=== PATIENT | male | born 1975 | race Two or more races ===

== ENCOUNTER 2020-07-14 13:37 | Inpatient (IN) | payer SELFPAY ==
[~2020-07-14] VITALS: Ht 167.6 cm; Wt 97.2 kg
[2020-07-14] MEDS ORDERED: SODIUM CHLORIDE 0.9% 1,000 ML IV ONE (14:00)
[2020-07-14] MEDS ORDERED: DexAMETHasone SOD PHOS 10MG/1ML VIAL INJ IV ONE (14:45)
[2020-07-14] MEDS ORDERED: DOXYCYCLINE 100MG/250ML 250 ML IV ONE (14:45)
[2020-07-14 14:55] LABS: Albumin 3.6 g/dL (3.4-5.0); Calcium 8.2 mg/dL (8.5-10.1); Potassium 4.1 mmol/L (3.5-5.1)
[2020-07-14 14:58] LABS: BUN/Creatinine Ratio 14.5; Bilirubin, Total 0.8 mg/dL (0.2-1.0)
[2020-07-14] MEDS ORDERED: MORPHINE SULF INJ 2 MG/ML SYRINGE 1ML IV PRN ×2 (15:45→20:45)
[2020-07-14] MEDS ORDERED: NITROGLYCERIN 0.4 MG SL TAB SL PRN ×2 (15:45→20:45)
[2020-07-14 16:59] LABS: Basophils # (auto) 0 10 ^3/uL (0-0.2); Basophils % (auto) 0.3 % (0.0-2.0); Eosinophils # (auto) 0 10 ^3/uL (0-0.8); Hematocrit 46.3 % (41.0-53.0); Lymphocytes # (auto) 0.7 10 ^3/uL (0.4-5.4); Lymphocytes % (auto) 7.6 % (10.0-50.0); Mean Corpuscular Hemoglobin 27.4 pg (28.0-32.0); Mean Corpuscular Hgb Conc. 32.4 g/dL (32.0-36.0); Mean Corpuscular Volume 84.6 fL (80.0-100.0); Monocytes # (auto) 0.6 10 ^3/uL (0-1.3); Monocytes % (auto) 7.1 % (0.0-12.0); Neutrophils # (auto) 7.7 10 ^3/uL (1.6-8.6); Nucleated Red Blood Cells % 0.1 %; Platelet Count (auto) 174 10^3/uL (140-450); Red Blood Cells 5.47 10^6/uL (4.5-5.90); Red Cell Distribution Width 14.8 % (11.8-14.3); White Blood Cell 9.1 10^3/uL (4.4-10.8)
[2020-07-14] MEDS ORDERED: SODIUM CHLORIDE 0.9% 1,000 ML IV SCH (20:36)
[2020-07-14] MEDS ORDERED: ACETAMINOPHEN 500 MG TAB PO PRN (20:45)
[2020-07-14] MEDS ORDERED: ALUM & MAG HYDROX-SIMETH LIQ(MAALOX) 30 ML PO PRN (20:45)
[2020-07-14] MEDS ORDERED: DOCUSATE SOD 100 MG CAP PO PRN (20:45)
[2020-07-14] MEDS ORDERED: LORazepam 0.5 MG TAB PO PRN (20:45)
[2020-07-14] MEDS: DOXYCYCLINE 100MG/250ML 250 ML IV SCH (21:27)
[2020-07-14] MEDS: ALBUTEROL SULF HFA 90MCG INH 200DOSE IN SCH (22:15)
[2020-07-14] MEDS: BUDESONIDE (INHALATION) 180 MCG IH IN SCH (22:15)
--- NOTE | 2020-07-14 22:15 | NUR ---
Respiratory note: ASSESSED PT FOR MDI TX. PT IS CURRENTLY ON 3 L/M: HR 88, RR 24, SPO2 95%. PT STATES THAT HIS BREATHING IS FINE AND THAT HE IS NO LONGER SOB. MDI WITHHELD UNTIL COVID RESULTS OR IF PT BECOMES SOB. WILL CONTINUE TO MONITOR.
[2020-07-14 22:30] LABS: Albumin 3.2 g/dL (3.4-5.0); Calcium 7.9 mg/dL (8.5-10.1); Magnesium 2.7 mg/dL (1.6-2.6); Potassium 4.3 mmol/L (3.5-5.1)
[2020-07-14 22:38] LABS: BUN/Creatinine Ratio 18.3; Bilirubin, Total 0.6 mg/dL (0.2-1.0); CRP High Sensitivity 4.09 mg/dL (< 0.3); Total Protein 7.4 g/dL (6.4-8.2)
--- NOTE | 2020-07-14 23:56 | NUR ---
Telemetry admit from ER CHARMAINERENNY admitted to Telemetry unit after NO SBAR received. Patient oriented to FIDELINA FLOREZ RN primary RN, unit, room, bed, and unit policies regarding patient care and visiting hours. Patient now on continuous telemetry monitoring, tele box # 11and telemetry reading on arrival to unit is Tachycardia 101bpm. Patient placed on bedside oxygen, weighed by bedscale and encouraged to call if they need something. All questions and concerns addressed, patient verbalized understanding.
[2020-07-15] VITALS (7 sets, daily range): BP systolic 115–133; BP diastolic 74–87
[2020-07-15] MEDS ORDERED: INFLUENZA QUAD 2019-2020 0.5ml SYRG IM ONE (01:45)
[2020-07-15] MEDS ORDERED: PNEUMOCOCCAL VACC POLYS 25 MCG/0.5 ML VIAL IM ONE (01:45)
[2020-07-15 02:09] LABS: Urine Bacteria FEW /hpf (None Seen); Urine Blood Negative /uL (Negative); Urine Hyaline Cast MANY /lpf (0 - 2); Urine Mucus FEW (None Seen); Urine Specific Gravity 1.025 (1.001-1.035); Urine WBC 3 /hpf (0 - 3)
[2020-07-15 02:15] LABS: Amphetamine Screen, Urine NEGATIVE (NEGATIVE); Barbiturate Scree,Urine NEGATIVE (NEGATIVE); Benzodiazephine Screen, Urine NEGATIVE (NEGATIVE); Cannabinoid Screen, Urine NEGATIVE (NEGATIVE); Cocaine Screen, Urine NEGATIVE (NEGATIVE); Opiate Scree,Urine NEGATIVE (NEGATIVE); Phencyclidine Screen, Urine NEGATIVE (NEGATIVE)
[2020-07-15] MEDS: FUROSEMIDE 20 MG/2 ML VIAL IV SCH ×2 (05:40→18:12)
--- NOTE | 2020-07-15 06:50 | NUR ---
patient rounds patient resting in bed. denies sob distress or pain. call light within reach and bed in low position.
[2020-07-15 06:57] LABS: Cholesterol 105 mg/dL (< 200)
[2020-07-15 06:58] LABS: Albumin 3.1 g/dL (3.4-5.0); Calcium 7.9 mg/dL (8.5-10.1); Potassium 4.3 mmol/L (3.5-5.1)
[2020-07-15 06:59] LABS: Basophils # (auto) 0 10 ^3/uL (0-0.2); Basophils % (auto) 0.3 % (0.0-2.0); Eosinophils # (auto) 0 10 ^3/uL (0-0.8); Hematocrit 41.9 % (41.0-53.0); Lymphocytes # (auto) 0.6 10 ^3/uL (0.4-5.4); Lymphocytes % (auto) 6.7 % (10.0-50.0); Mean Corpuscular Hgb Conc. 33.4 g/dL (32.0-36.0); Mean Corpuscular Volume 83.9 fL (80.0-100.0); Monocytes # (auto) 0.5 10 ^3/uL (0-1.3); Monocytes % (auto) 5.6 % (0.0-12.0); Neutrophils # (auto) 8.2 10 ^3/uL (1.6-8.6); Neutrophils % (auto) 87.4 % (37.0-80.0); Nucleated Red Blood Cells % 0.1 %; Platelet Count (auto) 160 10^3/uL (140-450); Red Blood Cells 4.99 10^6/uL (4.5-5.90); Red Cell Distribution Width 14.4 % (11.8-14.3); White Blood Cell 9.4 10^3/uL (4.4-10.8)
--- NOTE | 2020-07-15 07:01 | NUR ---
report given to dayshift rn. patient denies sob distress or pain.
[2020-07-15 07:02] LABS: HDL Cholesterol 24 mg/dL (40-59); LDL Cholesterol 74 mg/dL (< 100); Triglycerides 62 mg/dL (< 150)
[2020-07-15 07:03] LABS: BUN/Creatinine Ratio 20.9; Bilirubin, Total 0.6 mg/dL (0.2-1.0); Total Protein 6.6 g/dL (6.4-8.2)
[2020-07-15] MEDS: ALBUTEROL SULF HFA 90MCG INH 200DOSE IN SCH ×4 (07:07→22:27)
--- NOTE | 2020-07-15 07:07 | NUR ---
RT NOTE: TX HELD/MEDS NOT ORDERED. WAITING FOR PENDING COVID RESULTS. NO SIGNS OF RESPIRATORY DISTRESS NOTED AT THIS TIME. ON 3LNC SPO2 93 HR 87 RR 1820. LUNG SOUNDS CLEAR/DIMINISHED T/O. WILL CONTINUE TO MONITOR.
[2020-07-15] MEDS: BUDESONIDE (INHALATION) 180 MCG IH IN SCH ×2 (07:08→22:27)
--- NOTE | 2020-07-15 11:54 | NUR ---
Est energy needs [id number] kcal (18-20 kcal/kg BW 97.5kg) Est protein needs 65-84g (1-1.3g/kg IBW 64.5kg) Will reassess prn. Addendum: 07/15/20 at [address] Amended: Links added.
[2020-07-15] MEDS: DOXYCYCLINE 100MG/250ML 250 ML IV SCH ×2 (12:24→21:01)
[2020-07-15] MEDS: DexAMETHasone SOD PHOS 10MG/1ML VIAL INJ IV SCH (12:25)
[2020-07-15] MEDS: ASCORBIC ACID 1,000 MG TAB PO SCH (12:25)
[2020-07-15] MEDS: CHOLECALCIFEROL (VITD3) 2,000 UNIT CAP PO SCH (12:25)
[2020-07-15] MEDS: ZINC SULFATE 220mg CAP or TAB PO SCH (12:25)
[2020-07-15] MEDS: ENOXAPARIN SOD 40 MG/0.4 ML SYRINGE SC SCH (12:25)
--- NOTE | 2020-07-15 14:26 | NUR ---
RT NOTE: TX STILL HELD PENDING COVID RESULTS. NO DISTRESS NOTED. ON 3LNC SPO2 95 HR 87 RR 20. WILL CONTINUE TO MONITOR.
--- NOTE | 2020-07-15 19:30 | NUR ---
Opening Shift Note Assumed care of patient, awake and alert. No S/S of distress/SOB or pain. Instructed on POC and to callfor assist PRN, will continue to monitor for changes Q1hr and PRN.
[2020-07-16] MEDS: HYDROcodone-ACET 5/325MG TAB PO PRN ×2 (02:47→09:00)
[2020-07-16 05:00] VITALS: BP 119/76
[2020-07-16] MEDS: FUROSEMIDE 20 MG/2 ML VIAL IV SCH ×2 (05:37→19:28)
[2020-07-16 05:59] LABS: Basophils # (auto) 0 10 ^3/uL (0-0.2); Basophils % (auto) 0.1 % (0.0-2.0); Eosinophils # (auto) 0 10 ^3/uL (0-0.8); Hematocrit 40.9 % (41.0-53.0); Hemoglobin 13.7 g/dL (13.5-17.5); Lymphocytes # (auto) 0.7 10 ^3/uL (0.4-5.4); Lymphocytes % (auto) 5.1 % (10.0-50.0); Mean Corpuscular Hemoglobin 27.9 pg (28.0-32.0); Mean Corpuscular Hgb Conc. 33.5 g/dL (32.0-36.0); Mean Corpuscular Volume 83.3 fL (80.0-100.0); Monocytes # (auto) 0.7 10 ^3/uL (0-1.3); Monocytes % (auto) 5.3 % (0.0-12.0); Neutrophils # (auto) 11.9 10 ^3/uL (1.6-8.6); Neutrophils % (auto) 89.5 % (37.0-80.0); Platelet Count (auto) 194 10^3/uL (140-450); Red Blood Cells 4.91 10^6/uL (4.5-5.90); Red Cell Distribution Width 14.4 % (11.8-14.3); White Blood Cell 13.3 10^3/uL (4.4-10.8)
[2020-07-16 06:17] LABS: Calcium 7.8 mg/dL (8.5-10.1)
[2020-07-16 06:20] LABS: BUN/Creatinine Ratio 28.1
[2020-07-16] MEDS: ALBUTEROL SULF HFA 90MCG INH 200DOSE IN SCH ×3 (06:44→22:42)
[2020-07-16] MEDS: BUDESONIDE (INHALATION) 180 MCG IH IN SCH ×2 (06:44→22:42)
[2020-07-16 08:00] VITALS: BP 110/78
[2020-07-16] MEDS: ZINC SULFATE 220mg CAP or TAB PO SCH (11:40)
[2020-07-16] MEDS: ASCORBIC ACID 1,000 MG TAB PO SCH (11:40)
[2020-07-16] MEDS: DOXYCYCLINE 100MG/250ML 250 ML IV SCH ×2 (11:40→20:49)
[2020-07-16] MEDS: DexAMETHasone SOD PHOS 10MG/1ML VIAL INJ IV SCH (11:40)
[2020-07-16] MEDS: CHOLECALCIFEROL (VITD3) 2,000 UNIT CAP PO SCH (11:42)
[2020-07-16] MEDS: ENOXAPARIN SOD 40 MG/0.4 ML SYRINGE SC SCH (11:43)
[2020-07-16] MEDS: MORPHINE SULF INJ 2 MG/ML SYRINGE 1ML IV PRN (12:30)
[2020-07-16] MEDS: ONDANSETRON HCL 4 MG/2 ML VIAL IV PRN (12:30)
[2020-07-16 13:13] VITALS: BP 121/82
[2020-07-16 17:00] VITALS: BP 126/75
--- NOTE | 2020-07-16 19:18 | NUR ---
Opening Shift Note Assumed care of patient, awake and alert. No S/S of distress/SOB or pain. Instructed on POC and to call for assist PRN, will continue to monitor for changes Q1hr and PRN.
[2020-07-16 22:00] VITALS: BP 101/67
[2020-07-17] MEDS: HYDROcodone-ACET 5/325MG TAB PO PRN (02:31)
[2020-07-17 05:07] VITALS: BP 117/85
[2020-07-17 06:05] LABS: Basophils # (auto) 0 10 ^3/uL (0-0.2); Basophils % (auto) 0.1 % (0.0-2.0); Eosinophils # (auto) 0 10 ^3/uL (0-0.8); Hematocrit 41.3 % (41.0-53.0); Hemoglobin 13.6 g/dL (13.5-17.5); Lymphocytes # (auto) 0.6 10 ^3/uL (0.4-5.4); Lymphocytes % (auto) 6.6 % (10.0-50.0); Mean Corpuscular Hemoglobin 27.6 pg (28.0-32.0); Mean Corpuscular Volume 83.5 fL (80.0-100.0); Monocytes # (auto) 0.7 10 ^3/uL (0-1.3); Monocytes % (auto) 7.8 % (0.0-12.0); Neutrophils # (auto) 7.9 10 ^3/uL (1.6-8.6); Neutrophils % (auto) 85.5 % (37.0-80.0); Platelet Count (auto) 204 10^3/uL (140-450); Red Blood Cells 4.95 10^6/uL (4.5-5.90); Red Cell Distribution Width 14.2 % (11.8-14.3); White Blood Cell 9.2 10^3/uL (4.4-10.8)
[2020-07-17 06:27] LABS: BUN/Creatinine Ratio 24.4; Calcium 7.9 mg/dL (8.5-10.1)
[2020-07-17] MEDS: ALBUTEROL SULF HFA 90MCG INH 200DOSE IN SCH ×3 (06:49→21:37)
[2020-07-17] MEDS: BUDESONIDE (INHALATION) 180 MCG IH IN SCH ×2 (06:49→21:37)
[2020-07-17] MEDS: FUROSEMIDE 20 MG/2 ML VIAL IV SCH ×2 (06:56→17:15)
--- NOTE | 2020-07-17 07:30 | NUR ---
Opening Shift Note Assumed care of patient, awake and alert. Oxygen via NC 3L saturation 96 %,No S/S of distress/SOB or pain. Instructed on POC and to call for assist PRN, will continue to monitor for changes Q1hr and PRN.
[2020-07-17 09:00] VITALS: BP 129/105
[2020-07-17] MEDS: MORPHINE SULF INJ 2 MG/ML SYRINGE 1ML IV PRN ×3 (11:30→22:26)
[2020-07-17] MEDS: ONDANSETRON HCL 4 MG/2 ML VIAL IV PRN (11:30)
[2020-07-17] MEDS: DexAMETHasone SOD PHOS 10MG/1ML VIAL INJ IV SCH (11:51)
[2020-07-17] MEDS: ZINC SULFATE 220mg CAP or TAB PO SCH (11:51)
[2020-07-17] MEDS: DOXYCYCLINE 100MG/250ML 250 ML IV SCH ×2 (11:51→22:22)
[2020-07-17] MEDS: ASCORBIC ACID 1,000 MG TAB PO SCH (11:52)
[2020-07-17] MEDS: ENOXAPARIN SOD 40 MG/0.4 ML SYRINGE SC SCH (11:52)
[2020-07-17] MEDS: CHOLECALCIFEROL (VITD3) 2,000 UNIT CAP PO SCH (11:52)
[2020-07-17 13:19] VITALS: BP 131/87
--- NOTE | 2020-07-17 14:59 | NUR ---
assessment Patient is a 45 year old male who is alert and oriented. Prior to admission patient lived home with family and functioned independently. Patient informed me he is able to care for his own ADLs. Per patient he will return home to his prior living arrangements post discharge and family will transport him home. Patient is covid positive. I informed patient I will continue to monitor and follow up as appropriate. Patient has no insurance. Patient has been assessed by Pramod Donovan of [facility]. Patient may qualify for [employer] if she brings back all her paperwork. I have provided patient with resources for [facility], Dr. Padilla, and [facility] urgent care for follow up visits. I have provided patient with a prescription card from community assistance program. I informed patient he has a right to speak to a social service director regarding all care. I informed patient he has a right to participate in any and all discharge planning. Patient does not have a POA and advanced directive. I have offered patient information on POA and advanced directives. I informed the patient the advantages and benefits of having an Advanced Directive. Patient verbalized understanding and agreed to discharge plan. Addendum: 07/17/20 at 1504 by Maren DELCID Amended: Links added.
[2020-07-17 16:44] VITALS: BP 113/75
--- NOTE | 2020-07-17 19:10 | NUR ---
OPENING SHIFT NOTE: Assumed care of patient. Patient awake, alert and oriented x 4. No s/s of SOB or distress. Bed in lowest locked position with two side rails raised and call gonzalez within reach. Instructed on POC and encouraged to call for assistance, all questions and concerns addressed, patient verbalized understanding. Will continue to monitor Q1 hr and PRN.
[2020-07-17 20:01] VITALS: BP 101/78
[2020-07-17 22:00] VITALS: BP 110/68
[2020-07-18 05:00] VITALS: BP 121/87
[2020-07-18] MEDS: MORPHINE SULF INJ 2 MG/ML SYRINGE 1ML IV PRN (05:52)
[2020-07-18] MEDS: FUROSEMIDE 20 MG/2 ML VIAL IV SCH ×2 (05:52→18:14)
[2020-07-18] MEDS: BUDESONIDE (INHALATION) 180 MCG IH IN SCH ×2 (06:31→22:08)
[2020-07-18] MEDS: ALBUTEROL SULF HFA 90MCG INH 200DOSE IN SCH ×3 (06:31→22:08)
[2020-07-18 07:36] LABS: Basophils # (auto) 0 10 ^3/uL (0-0.2); Basophils % (auto) 0.2 % (0.0-2.0); Eosinophils # (auto) 0 10 ^3/uL (0-0.8); Eosinophils % (auto) 0.1 % (0.0-7.0); Hematocrit 42.1 % (41.0-53.0); Hemoglobin 14.2 g/dL (13.5-17.5); Lymphocytes # (auto) 1.1 10 ^3/uL (0.4-5.4); Lymphocytes % (auto) 9.7 % (10.0-50.0); Mean Corpuscular Hemoglobin 27.8 pg (28.0-32.0); Mean Corpuscular Hgb Conc. 33.8 g/dL (32.0-36.0); Mean Corpuscular Volume 82.2 fL (80.0-100.0); Monocytes # (auto) 1.1 10 ^3/uL (0-1.3); Monocytes % (auto) 9.2 % (0.0-12.0); Neutrophils # (auto) 9.2 10 ^3/uL (1.6-8.6); Neutrophils % (auto) 80.8 % (37.0-80.0); Platelet Count (auto) 244 10^3/uL (140-450); Red Blood Cells 5.12 10^6/uL (4.5-5.90); Red Cell Distribution Width 14.2 % (11.8-14.3); White Blood Cell 11.4 10^3/uL (4.4-10.8)
[2020-07-18 07:48] LABS: Albumin 2.9 g/dL (3.4-5.0); Calcium 7.7 mg/dL (8.5-10.1); Potassium 3.5 mmol/L (3.5-5.1)
[2020-07-18 07:51] LABS: BUN/Creatinine Ratio 20.7; Bilirubin, Total 0.6 mg/dL (0.2-1.0); Total Protein 6.8 g/dL (6.4-8.2)
[2020-07-18 09:00] VITALS: BP 107/77
--- NOTE | 2020-07-18 10:53 | NUR ---
PATIENT PROVIDED INCENTIVE SPIROMETER. INSTRUCTED ON PROPER USAGE. PATIENT RETURNED PROPER DEMONSTRATION 1250ML AT THIS TIME. INSTRUCTED TO USE 10 TIMES AN HOUR. PATIENT VERBALIZED UNDERSTANDING.
--- NOTE | 2020-07-18 11:48 | NUR ---
Nessa CASTANEDA AT BEDSIDE, Margaret EXPLAINED REMDESIVIR TO PATIENT A POSSIBILITY OF TREATMENT. UPDATED ON PATIENT STATUS AND INCENTIVE SPIROMETER USE LONG OXYGEN REQUIREMENTS.
[2020-07-18] MEDS: DexAMETHasone SOD PHOS 10MG/1ML VIAL INJ IV SCH (12:03)
[2020-07-18] MEDS: ZINC SULFATE 220mg CAP or TAB PO SCH (12:04)
[2020-07-18] MEDS: CHOLECALCIFEROL (VITD3) 2,000 UNIT CAP PO SCH (12:04)
[2020-07-18] MEDS: ENOXAPARIN SOD 40 MG/0.4 ML SYRINGE SC SCH (12:04)
[2020-07-18] MEDS: ASCORBIC ACID 1,000 MG TAB PO SCH (12:04)
[2020-07-18] MEDS: DOXYCYCLINE 100MG/250ML 250 ML IV SCH ×2 (12:04→21:08)
--- NOTE | 2020-07-18 12:35 | NUR ---
Nutrition Followup Note Wt: 98.0 kg Pt is covid positive no distress noted per nursing in isolation. pt is currently on regular diet with adequate Po of 75% x 3 per RN doc Est energy needs [id number] kcal (18-20 kcal/kg BW 97.5kg) Est protein needs 65-84g (1-1.3g/kg IBW 64.5kg) Will reassess prn. Labs: BUN 19 H, CA 7.7 L, ALB 2.9 L BM: pt with 1 BM today per RN note Skin: Bs 22 low risk, full details in critical care unit nurse note PES: Obesity aeb pt with a BMI of 34.7kg/m2 which is obese r/t caloric intake in excess of needs Comments: Will continue to monitor PO intake, skin status, pertinent labs and weight trends. Will f/u in 3-5 days. 1) refer pt to [facility] on DC. 2) Continue current plan of care
[2020-07-18 13:00] VITALS: BP 110/68
[2020-07-18 17:00] VITALS: BP 114/80
--- NOTE | 2020-07-18 19:15 | NUR ---
OPENING SHIFT NOTE: Assumed care of patient. Patient alert and oriented x 4. No s/s of SOB or distress, patient denies pain. Bed in lowest locked position with two side rails raised and call gonzalez within reach. Instructed on POC and encouraged to call for assistance, all questions and concerns addressed, patient verbalizes understanding. Will continue to monitor Q1 hr and PRN.
[2020-07-18 22:00] VITALS: BP 117/58
[2020-07-19 05:00] VITALS: BP 123/88
[2020-07-19] MEDS: FUROSEMIDE 20 MG/2 ML VIAL IV SCH ×2 (05:39→18:48)
[2020-07-19 06:33] LABS: Basophils # (auto) 0 10 ^3/uL (0-0.2); Basophils % (auto) 0.1 % (0.0-2.0); Eosinophils # (auto) 0 10 ^3/uL (0-0.8); Eosinophils % (auto) 0.1 % (0.0-7.0); Hematocrit 40.8 % (41.0-53.0); Hemoglobin 13.9 g/dL (13.5-17.5); Lymphocytes # (auto) 1.1 10 ^3/uL (0.4-5.4); Lymphocytes % (auto) 9.2 % (10.0-50.0); Mean Corpuscular Hemoglobin 28.3 pg (28.0-32.0); Mean Corpuscular Hgb Conc. 34.2 g/dL (32.0-36.0); Mean Corpuscular Volume 82.6 fL (80.0-100.0); Monocytes % (auto) 8.4 % (0.0-12.0); Neutrophils # (auto) 9.7 10 ^3/uL (1.6-8.6); Neutrophils % (auto) 82.2 % (37.0-80.0); Nucleated Red Blood Cells % 0.1 %; Platelet Count (auto) 283 10^3/uL (140-450); Red Blood Cells 4.93 10^6/uL (4.5-5.90); Red Cell Distribution Width 14.1 % (11.8-14.3); White Blood Cell 11.8 10^3/uL (4.4-10.8)
[2020-07-19 06:53] LABS: Calcium 8.1 mg/dL (8.5-10.1); Potassium 3.6 mmol/L (3.5-5.1)
[2020-07-19 06:55] LABS: BUN/Creatinine Ratio 25.3
[2020-07-19] MEDS: BUDESONIDE (INHALATION) 180 MCG IH IN SCH ×2 (07:58→21:58)
[2020-07-19] MEDS: ALBUTEROL SULF HFA 90MCG INH 200DOSE IN SCH ×3 (07:58→21:58)
[2020-07-19] MEDS: DOXYCYCLINE 100MG/250ML 250 ML IV SCH (08:35)
[2020-07-19] MEDS: ZINC SULFATE 220mg CAP or TAB PO SCH (08:35)
[2020-07-19] MEDS: ASCORBIC ACID 1,000 MG TAB PO SCH (08:35)
[2020-07-19] MEDS: DexAMETHasone SOD PHOS 10MG/1ML VIAL INJ IV SCH (08:35)
[2020-07-19] MEDS: CHOLECALCIFEROL (VITD3) 2,000 UNIT CAP PO SCH (08:36)
[2020-07-19] MEDS: ENOXAPARIN SOD 40 MG/0.4 ML SYRINGE SC SCH (08:36)
[2020-07-19 09:00] VITALS: BP 100/67
[2020-07-19 13:00] VITALS: BP 98/64
[2020-07-19 17:00] VITALS: BP 105/69
--- NOTE | 2020-07-19 19:15 | NUR ---
Opening Shift Note Assumed care of patient. Patient is awake, alert, and oriented x 4. No s/s of respiratory distress noted, no pain reported. Respirations are regular and non-labored. PT is on 3 lpm NC with SPO2 at 94% at this time. Bed is locked in lowest position, side rails x 2 up, call light is within reach. Instructed on plan of care and encouraged patient to call for assistance as needed. Will continue to monitor Q1H and/or PRN.
[2020-07-19 20:00] VITALS: BP 111/65
[2020-07-19 21:52] VITALS: BP 111/65
[2020-07-20 05:21] VITALS: BP 98/61
[2020-07-20] MEDS: FUROSEMIDE 20 MG/2 ML VIAL IV SCH ×2 (06:25→17:36)
[2020-07-20] MEDS: ALBUTEROL SULF HFA 90MCG INH 200DOSE IN SCH ×3 (07:24→22:10)
[2020-07-20] MEDS: BUDESONIDE (INHALATION) 180 MCG IH IN SCH ×2 (07:25→22:10)
[2020-07-20 09:00] VITALS: BP 120/69
[2020-07-20] MEDS: DexAMETHasone SOD PHOS 10MG/1ML VIAL INJ IV SCH (09:14)
[2020-07-20] MEDS: CHOLECALCIFEROL (VITD3) 2,000 UNIT CAP PO SCH (09:14)
[2020-07-20] MEDS: ZINC SULFATE 220mg CAP or TAB PO SCH (09:14)
[2020-07-20] MEDS: ASCORBIC ACID 1,000 MG TAB PO SCH (09:14)
[2020-07-20] MEDS: ENOXAPARIN SOD 40 MG/0.4 ML SYRINGE SC SCH (09:14)
--- NOTE | 2020-07-20 10:13 | NUR ---
PATIENT TITRATED DOWN TO 2L NASAL CANNULA. PATIENT DENIES ANY SOB AT THIS TIME. OXYGEN SATURATIONS REASSESSED WITH SATURATIONS AT 91-92%. WILL CONTINUE TO MONITOR.
--- NOTE | 2020-07-20 10:29 | NUR ---
Nessa GONZALEZ AT BEDSIDE. INFORMED OF PATIENTS DECREASING OXYGEN DEMAND. INFORMED OF PATIENTS CURRENT MEDICATION AND POTASSIUM LEVELS. RECEIVED NEW ORDERS SEE EMAR.
[2020-07-20] MEDS: POTASSIUM CHL 20 Meq TABLET PO ONE ×2 (10:30→14:56)
[2020-07-20 12:46] LABS: Calcium 8.5 mg/dL (8.5-10.1); Potassium 3.9 mmol/L (3.5-5.1)
[2020-07-20 12:49] LABS: BUN/Creatinine Ratio 25.3
[2020-07-20 13:00] VITALS: BP 110/72
[2020-07-20 17:00] VITALS: BP 100/59
--- NOTE | 2020-07-20 19:20 | NUR ---
Opening Shift Note Assumed care of patient. Patient is awake, alert, and oriented x 4. No s/s of respiratory distress, no pain. Respirations are regular and non-labored. PT is on 2 lpm NC with SPO2 at 93% at this time. Bed is locked in lowest position, side rails x 2 up, call light is within reach. Instructed on plan of care and encouraged patient to call for assistance as needed. Will continue to monitor Q1H and/or PRN.
[2020-07-20 20:00] VITALS: BP 91/57
[2020-07-20 22:00] VITALS: BP 91/57
[2020-07-21] VITALS (7 sets, daily range): BP systolic 91–118; BP diastolic 57–76
[2020-07-21] MEDS: FUROSEMIDE 20 MG/2 ML VIAL IV SCH ×2 (06:11→18:00)
[2020-07-21] MEDS: ALBUTEROL SULF HFA 90MCG INH 200DOSE IN SCH ×3 (07:03→22:35)
[2020-07-21] MEDS: BUDESONIDE (INHALATION) 180 MCG IH IN SCH ×2 (07:03→22:35)
--- NOTE | 2020-07-21 09:04 | NUR ---
D/C Planning Regarding social service consult for home oxygen. Faxed clinical information to [employer] requesting for portable oxygen to be deliver to front lobby and concentrate. Received a follow up called from [employer] with [employer] advising me due to patient not having health insurance they would need patient social security in order for him to qualify under the [employer]. Patient was informed and stated he did not have a social security number. Patient was informed he would be responsible for the cost of the portable oxygen and concentrate and it will be an amount of [id number] via credit card only. Patient verbalize understanding discharge plan. Placed a follow up called to [employer] with [facility] advising her patient is in agreement to pay the 175 dlls. [employer] will contact patient to arrange payment. Informed FIONA Winters.
[2020-07-21] MEDS: ASCORBIC ACID 1,000 MG TAB PO SCH (09:44)
[2020-07-21] MEDS: DexAMETHasone SOD PHOS 10MG/1ML VIAL INJ IV SCH (09:44)
[2020-07-21] MEDS: ZINC SULFATE 220mg CAP or TAB PO SCH (09:44)
[2020-07-21] MEDS: CHOLECALCIFEROL (VITD3) 2,000 UNIT CAP PO SCH (09:44)
[2020-07-21] MEDS: ENOXAPARIN SOD 40 MG/0.4 ML SYRINGE SC SCH (09:45)
--- NOTE | 2020-07-21 12:46 | NUR ---
Nutrition Followup Note Wt: 90.0 kg Pt is covid positive no distress noted per nursing in isolation. pt is currently on regular diet with adequate Po aeb pt with an avg po intake of 86% x 2 days per RN note. Est energy needs [id number] kcal (18-20 kcal/kg BW 97.5kg) Est protein needs 65-84g (1-1.3g/kg IBW 64.5kg) Will reassess prn. Labs: BUN 23H, Alb 2.9L BM: pt with 2 BMs today per RN note Skin: Bs 21 low risk, full details in rn managed care note PES: Obesity aeb pt with a BMI of 34.7kg/m2 which is obese r/t caloric intake in excess of needs Comments: Will continue to monitor PO intake, skin status, pertinent labs and weight trends. Will f/u in 3-5 days. 1) refer pt to [facility] on DC. 2) Continue current plan of care
[2020-07-21] MEDS ORDERED: ASCO10003 PO (13:34)
[2020-07-21] MEDS ORDERED: DEX4T PO (13:34)
--- NOTE | 2020-07-21 19:20 | NUR ---
OPENING SHIFT NOTE Assumed care of patient who is A&O x4. Currently on 1L NC with no s/s of distress. Denies pain at this time. PIV in left forearm is intact and patent. Flushed with 10ml NS. Patient informed that we are awaiting delivery of portable O2 before discharging home. Patient verbalizes understanding. Bed is in low locked position with side rails up x2. Call light is within reach and patient encouraged to call for assistance when needed. Will continue to monitor for changes PRN.
--- NOTE | 2020-07-21 21:00 | NUR ---
Attempted to call medical supply [facility] for update on delivery of portable O2. No answer. Business hours are 9-5:30. WIll pass on to next shift to follow up.
[2020-07-22 05:00] VITALS: BP 123/90
[2020-07-22] MEDS: FUROSEMIDE 20 MG/2 ML VIAL IV SCH (06:13)
[2020-07-22] MEDS: ALBUTEROL SULF HFA 90MCG INH 200DOSE IN SCH (07:03)
[2020-07-22] MEDS: BUDESONIDE (INHALATION) 180 MCG IH IN SCH (07:03)
--- NOTE | 2020-07-22 07:35 | NUR ---
Opening note Assumed care of patient from NOC RN. Patient is AOx4 no s/s of distress noted. Bed is in lowest locked position, call light is within reach and side rails up x2. Updated patient on plan of care and patient verbalized understanding. Will continue to monitor q1hr and PRN.
[2020-07-22 08:21] VITALS: BP 105/78
[2020-07-22] MEDS: DexAMETHasone SOD PHOS 10MG/1ML VIAL INJ IV SCH (09:15)
[2020-07-22] MEDS: ZINC SULFATE 220mg CAP or TAB PO SCH (09:15)
[2020-07-22] MEDS: CHOLECALCIFEROL (VITD3) 2,000 UNIT CAP PO SCH (09:15)
[2020-07-22] MEDS: ASCORBIC ACID 1,000 MG TAB PO SCH (09:15)
[2020-07-22] MEDS: ENOXAPARIN SOD 40 MG/0.4 ML SYRINGE SC SCH (09:16)
--- NOTE | 2020-07-22 11:15 | NUR ---
Discharge note Discharge instructions given as ordered. Encourage to follow up with PMD as instructed. All questions and concerns addressed. Patient verbalized understanding. Home medications from [facility] sent with patient, and O2 tank from [facility] sent with patient. IV removed with catheter intact, pressure dressing applied. Telemetry unit returned to ICU. Patient taken to vehicle via ambulation with all personal belongings, accompanied by staff members. No distress noted at time of departure.
== END 2020-07-22 11:15 | disposition home or self-care (01) | DRG 177 ==
LOC: ER 13:37 → TELE 13:38 → TELE-EAST 23:49
PROVIDERS: ADMIT Hospitalist; ATTEND Internal Medicine Pulmonary Disease
DX: U07.1 COVID-19 (principal); J12.89 Other viral pneumonia; N17.0 Acute kidney failure with tubular necrosis; J96.00 Acute respiratory failure, unspecified whether with hypoxia or hypercapnia; E87.1 Hypo-osmolality and hyponatremia; E66.01 Morbid (severe) obesity due to excess calories; N18.9 Chronic kidney disease, unspecified; Z68.34 Body mass index [BMI] 34.0-34.9, adult; Z79.899 Other long term (current) drug therapy; Z88.0 Allergy status to penicillin
CPT/HCPCS: 36415; 71045; 80048; 80053; 80061; 80307; 81001; 82728; 83036; 83605; 83615; 83735; 84443; 84484; 85025; 85379; 86141; 87040; 87086; 87426; 87804; 87880; 94640; 96361; 96365; 96367; 96375; 99291; G0378; J1100; J2405; J3490